=== PATIENT | female | born 1955 | race Caucasian/White ===

== ENCOUNTER → 2017-05-04 | Outpatient (CLI) | payer MEDICAID ==
[~2017-05-04] MED LIST: ADDERALL 20 MG20 M1 PO; CLONAZEPAM 1 MG1 M1 PO; HYDROCODONE-AP1 EAC6 PO; NORVASC5 MG PO; OXCARBAZEPINE300 M1 PO; PERCOCET PO; QUETIAPINE FUM100 MG PO; RESTORIL30 MG PO; SIMVASTATIN40 MG PO; TRAMADOL 50 MG50 MG PO; TRILEPTAL300 MG PO; VALIUM5 MG PO; XANAX 0.25 MG0.25 MG PO; XARELTO10 MG PO
== END ==
LOC: M.MRI 05-01 08:30
DX: S83.241A Other tear of medial meniscus, current injury, right knee, initial encounter (principal); M17.11 Unilateral primary osteoarthritis, right knee; M25.461 Effusion, right knee; Z98.890 Other specified postprocedural states; X58.XXXA Exposure to other specified factors, initial encounter; Y93.89 Activity, other specified; Y92.89 Other specified places as the place of occurrence of the external cause; Y99.8 Other external cause status

== ENCOUNTER 2017-06-06 06:33 | Inpatient (IN) | payer MEDICAID ==
[2017-05-25 09:28] LABS: HEMATOCRIT 34.8 % (37.0-47.0); HEMOGLOBIN 11.9 gm/dL (12.0-15.0); MCH 30.2 pg (26.0-34.0); MCHC 34.1 g/dL (28.0-37.0); MCV 88.4 fL (80.0-100.0); MPV 6.5 fl. (7.2-11.1); RBC 3.94 mil/uL (4.20-5.00); RDW-CV 13.8 % (10.5-14.5); WBC 5.4 thou/uL (4.0-11.0)
[2017-05-25 09:29] LABS: URINE BILIRUBIN NEGATIVE (Negative); URINE BLOOD NEGATIVE (Negative); URINE CLARITY CLEAR; URINE COLOR YELLOW; URINE GLUCOSE-RANDOM NEGATIVE (Negative); URINE KETONES NEGATIVE (Negative); URINE LEUKOCYTES-REFLEX NEGATIVE (Negative); URINE NITRITE-REFLEX NEGATIVE (Negative); URINE PROTEIN NEGATIVE (Negative); URINE SPECIFIC GRAVITY 1.025 (1.005-1.030); URINE UROBILINOGEN 0.2 E.U./dl (0.2-1.0)
[2017-05-25 09:34] LABS: PROTIME 9.5 Seconds (9.20-11.50)
[2017-05-25 09:43] LABS: ALBUMIN 3.4 g/dL (3.4-5.0); CALCIUM 8.8 mg/dL (8.5-10.1); POTASSIUM 3.8 mmol/L (3.5-5.1); TOTAL BILIRUBIN 0.1 mg/dL (<0.1-1.0); TOTAL PROTEIN 6.8 g/dL (6.4-8.2)
--- NOTE | 2017-05-25 09:47 | EKG ---
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
[~2017-06-06] VITALS: Ht 152.4 cm; Wt 73.5 kg
[~2017-06-06 06:33] MED LIST changes: -HYDROCODONE-AP1 EAC6 PO; -PERCOCET PO; -VALIUM5 MG PO; -XARELTO10 MG PO
[2017-06-06 07:26] VITALS: BP 124/74
[2017-06-06 11:37] VITALS: BP 121/71
--- NOTE | 2017-06-06 11:42 | NUR ---
PATIENT ADMITTED FROM PACU TO ROOM 103. ALERT AND ORIENTED. DENIES PAIN. DRESSING TO RIGHT KNEE DRY AND INTACT. POLAR CARE,SCD, AND MADHU IN PLACE. VSS. O2 2L, SAT 96% PER NASAL CANNULA. BED ALARM SET. EDUCATED ON FALL PREVENTION. CALL LIGHT WITHIN REACH. WILL CONTINUE TO MONITOR.
--- NOTE | 2017-06-06 14:52 | NUR ---
PT.CALLED CM YESTERDAY TO REQUEST TO GO TO [facility] AFTER ACUTE STAY. SHE SAID SHE HAD GONE THERE LAST TIME AFTER SURGERY AND WANTS TO RETURN THERE. EXPLAINED I COULD NOT MAKE REFERRAL UNTIL DAY OF SURGERY. PT.IS POST OP NOW. CM CALLED [facility] [phone] AND FAXED FACE SHEET,H&P AND CHART COPY OF OP REPORT TO [phone]. SHE SAID PT.HAD ALREADY CALLED HER. WILL NEED TO FAX PT/OT EVALS IN AM AFTER COMPLETED.
[2017-06-06] MEDS ORDERED: HYDROCODONE-AP1 EAC6 PO (16:03)
[2017-06-06] MEDS ORDERED: VALIUM5 MG PO (16:04)
--- NOTE | 2017-06-06 16:24 | NUR ---
PATIENT REMAINS ALERT AND ORIENTED. ANXIOUS AT TIMES, ESPECIALLY REGARDING PSYCHIATRIC MEDICATIONS. VOIDING PER BEDPAN. PAIN CONTROLLED WITH HYDROCODONE AND OXYIR. DRESSING TO KNEE DRY AND INTACT. MADHU,POLAR CARE, AND SCD'S IN PLACE. TOLERATING MEALS. DAUGHTER AT BEDSIDE. CALL LIGHT WITHIN REACH. WILL CONTINUE TO MONITOR.
[2017-06-06 17:36] VITALS: BP 129/55
[2017-06-06 21:05] VITALS: BP 123/69
[2017-06-06 23:56] VITALS: BP 130/86
[2017-06-07 04:01] VITALS: BP 130/84
[2017-06-07 04:23] LABS: HEMATOCRIT 30.8 % (37.0-47.0); HEMOGLOBIN 10.5 gm/dL (12.0-15.0)
[2017-06-07 04:29] LABS: CALCIUM 8.2 mg/dL (8.5-10.1); MAGNESIUM 1.8 mg/dL (1.8-2.4); POTASSIUM 4.1 mmol/L (3.5-5.1)
--- NOTE | 2017-06-07 04:41 | NUR ---
PATIENT ALERT AND ORIENTED. VITALS STABLE. ON 2L OF OXYGEN, CONTINUOUS PULSE OX IN PLACE. RIGHT KNEE DRESSING C/D/I. ALTERNATING PO AND IV PAIN MEDICATION. SLEPT COMFORTABLY THROUGH THE NIGHT. UP WITH ASSIST X 1 TO BSC, VOIDING ADEQUATELY. FLUIDS INFUSING PER ORDER. ZOFRAN GIVEN X 1, EFFECTIVE. HOURLY ROUNDS. BED ALARM IN USE. NURSING WILL CONTINUE TO MONITOR.
[2017-06-07 07:50] VITALS: BP 112/67
--- NOTE | 2017-06-07 16:00 | NUR ---
FAXED OT/PT EV[phone]. INFORMED PT.OF SUCH AND THAT [facility] SHOULD BE OUT TOMORROW AM TO SEE HER. EXPLAINED CYNTHIA WILL NEED TO GET INSURANCE AUTH FROM [employer]ICA[employer]. SHE SAID SHE UNDERSTOOD. PT.WAS IN HER CPM AND SAID SHE LIKED IT. IT DOES THE WORK FOR YOU. CM WILL CONTACT [facility] IN AM TO MAKE SURE SHE RECEIVED FAX.
--- NOTE | 2017-06-07 17:35 | NUR ---
PATIENT REMAINED ALERT AND ORIENTED X'S 4. VITAL SIGNS AND SPO2 STABLE. SPO2 DID DROP IN HIGH 80'S DUE TO PAIN MEDS, PLACED O2 ON PATIENT, PATIENT REFUSED TO USE O2. PAIN NOT CONTROLLED EVEN THOUGH PATIENT RECIEVED PAIN MEDS Q.2 THROUGHOUT SHIFT. PATIENT REQUESTED MORPHINE BUT WITH O2 STATS DROPPING NURSE DID NOT FEEL IT WAS SAFE TO GIVE, PATIENT ALSO TAKING ALPRAZOLAM AND DIAZEPAM FOR ANXIETY. PATIENT TOLD STUDENTS THAT THE NURSE AND AID WERE "EXPLETIVES" AND WERE NOT GIVING HER MORPHINE LIKE SHE REQUESTED. NURSE TRIED TO EXPLAIN THE DANGERS OF TAKING TOO MANY NARCOTICS BUT PATIENT CALLED DR. ARGUELLO TO DEMAND WE GIVE MORPHINE TO HER. PATIENT ALSO TURNED OFF CHAIR ALARM AND GOT UP BY HERSELF TO COMMODE. NURSE AND AID BOTH EXPLAINED TO PATIENT SHE SIGNED FALL CONTRACT AND HOW DANGEROUS IT IS TO GET UP WITH OUT HELP. PATIENT MADE JOKES OF THE SITUATION AND IS NOT PLANNING ON BEING COMPLIANT OF FALL CONTRACT IN FUTURE, PATIENT CANNOT BE LEFT ALONE WHEN USING COMMODE. COMPLETED PT/OT. CPM 0-60 DEGREES. TEDS, SCD'S, YELLOW SOCKS, POLAR CARE IN PLACE. COMPLETED HOURLY ROUNDING. CALL LIGHT WITHIN REACH. WILL CONTINUE TO MONITOR.
[2017-06-07 20:00] VITALS: BP 117/94
[2017-06-08 00:14] VITALS: BP 118/76
[2017-06-08 02:06] LABS: GLYCOHEMOGLOBIN (HGB A1C) 4.7 % (4.8-5.6)
[2017-06-08 04:16] LABS: HEMATOCRIT 30.6 % (37.0-47.0); HEMOGLOBIN 10.2 gm/dL (12.0-15.0)
--- NOTE | 2017-06-08 05:04 | NUR ---
PATIENT REMAINED ALERT AND ORIENTED X4 THROUGOUT SHIFT. VITAL SIGNS STABLE ON ROOM AIR. PAIN WAS MANAGED WITH PO MEDICATION. DECLINED PAIN MEDICATION EARLY THIS AM STATING "I AM NOT HAVING PAIN AT THIS TIME". POLAR PACK IN USE. RIGHT KNEE DRESSING C/D/I. RESTLESS UNTIL 0100 THEN SLEPT COMFORTABLY FOR THE REMAINDER OF THE NIGHT. TRANSFERS WITH ASSIST X1 TO THE BSC. VOIDING ADEQUATELY. IV PATENT IN THE LEFT AC SALINE LOCKED. TOLERATING REGULAR DIET. DENIED NAUSEA. HOURLY ROUNDING COMPLETE. FALL PRECAUTIONS REMAIN IN PLACE. BED IN LOW POSITION WITH ALARM ON. CALL LIGHT WITHIN REACH. NURSING WILL CONTINUE TO MONITOR.
--- NOTE | 2017-06-08 07:38 | NUR ---
PATIENT ALERT AND ORIENTED AT 0000 WHEN NURSING WENT TO GIVE MEDICATION. RESTING COMFORTABLY THROUGHOUT THE NIGHT. HOURLY ROUNDING COMPLETE. CHECKED TO SEE IF PATIENT NEEDED PAIN MEDICATION FREQUENTLY, PATIENT DECLINED. NURSING IN ROOM AT 0600 PATIENT HAD CHANGE OF MENTAL STATUS ONLY ANSWERING YES OR NO QUESTIONS AND NOT ABLE TO STAY AWAKE. VITAL SIGNS STABLE. BG 97. OXYGEN WAS 71% ON ROOM AIR. PLACED ON 3 LITERS OF OXYGEN AND SAT CAME UP TO 96%. PATIENT HAS BEEN NONCOMPLIENT WITH OXYGEN PREVIOUS DAYS. DOCTOR WAS PAGED. ABG AND CHEST XRAY WERE ORDERED. WHEN ASKED IF SHE IS DROWSY AT HOME SHE SAYS "YES".
[2017-06-08 07:49] LABS: BE -1.2 mmol/L (-2 to +3); HCO3 23.4 mmol/L (22.0-26.0); PCO2 38.4 mmHg (35.0-45.0); pH 7.402 (7.340-7.450)
[2017-06-08 07:51] LABS: PO2 59.1 mmHg (75.0-100.0)
[2017-06-08 08:44] VITALS: BP 113/61
--- NOTE | 2017-06-08 10:51 | S ---
[place] [address] SURGICAL PATH RPT PROCEDURE Name: SNEHAL LICONA Room: [address] IN ..#: [id number] Admission: 06/06/17 Date of : 53 Discharge: Report #: [id number] Path Case #: [id number] PATHOLOGY REPORT COLLECTION DATE: 06/06/2017 RECEIVED DATE: 06/06/2017 SUBMITTING PHYS: Dr. Anmol Madden II OTHER PHYS: Dr. Nick Bynum SPECIMEN(S) RECEIVED: A.Bone right knee * * * * * * * * * * * * FINAL DIAGNOSIS: Bone right knee, total knee replacement: - Benign meniscus and benign bone and cartilage with severe degenerative changes. (KENIA:mml; 06/08/2017) PATHOLOGIST: Braulio Resendiz M.D. REPORT ELECTRONICALLY SIGNED BY: Braulio Resendiz M.D. DATE/TIME: 06/08/2017 10:50 * * * * * * * * * * * * GROSS PATHOLOGY: Received in formalin labeled "nomi Cedeno right knee," are multiple segments of bone, including tibial plateau, measuring 7.9 x 7.5 x 2.8 cm in aggregate dimensions with no grossly appreciable soft tissue; meniscus is present. The specimen shows focal eburnation of the articular surfaces. Spot Man sections of bone and soft tissue are submitted in cassette A1, following decalcification. (CAA; 06/07/2017) CLINICAL HISTORY: Right knee degenerative joint disease INITIAL CPT CODE(S): A; 02016, 76832 Professional services performed by [facility] at [facility], [address] [place], [place] [address], [place] [address]. Technical services performed by [facility] at [address] [place] [address], [address] [address]. [place] [address] SURGICAL PATH RPT PROCEDURE Name: SNEHAL LICONA Room: [address] IN [facility].#: [id number] Admission: 06/06/17 Date of : 53 Discharge: Report #: [id number] Path Case #: [id number] [facility] [address] [address] PHONE: [phone] DIRECTOR: Matheus Guido M.D. * * * END OF REPORT * * *
--- NOTE | 2017-06-08 14:23 | NUR ---
FAXED [facility] PROGRESS NOTES FROM STAY TO [phone] THIS AM. SHE WILL OBTAIN INSURANCE [facility] FROM [facility] CALLED AT 1315. SHE SAID THEY CAN ACCEPT PT. THEY HAVE RECEIVED INS.AUTH. VAN TO BE ARRANGED BY [facility] FOR 1600. FAXED DISCHARGE ORDERS TO HER. CHART COPIED TO GO WITH PT. NURSING TO CALL REPORT TO [phone]. PT.INFORMED OF DISCHARGE TIME.
[2017-06-08] MEDS ORDERED: PERCOCET PO (15:54)
[2017-06-08] MEDS ORDERED: XARELTO10 MG PO (15:55)
[2017-06-08 15:56] VITALS: BP 113/61
[2017-06-08 16:06] VITALS: BP 113/61
--- NOTE | 2017-06-08 19:07 | NUR ---
PATIENT LEFT UNIT AT 1600. ALERT AND ORIENTED X4. WITH ASSIST X1 WITH WALKER AND GAIT BELT. PAIN BEING MANAGED WITH PO PAIN MEDICATION. DENIES NAUSEA. THROUGHOUT THE BEGINNING OF THE SHIFT PATIENT WAS VERY LETHARGIC AND STARTED WAKING UP AROUND 1300. IV DC'D. ATTENDED THERAPY THIS EVENING. ALL PERSONAL ITEMS LEFT WITH PATIENT. VSS ON 3L O2. HOURLY ROUNDS HAVE BEEN MAINTAINED THROUGHOUT SHIFT. LEFT WITH TRANSPORTER VIA WHEELCHAIR VAN.
[2017-06-08 19:11] VITALS: BP 113/61
--- NOTE | 2017-06-20 08:30 | OP ---
[address] [address] OPERATIVE REPORT Name: GOLD LICONACRUZ Yan Room: [address] IN .R.#: [id number] Admission: 06/06/17 Attend Phys: Robert Giron Discharge: 06/08/17 Date of : 53 Report #: [id number] THIS REPORT FOR: //name// CC: Pavithra Chavarria DATE OF SERVICE: 06/06/2017 PREOPERATIVE DIAGNOSIS: Right knee osteoarthritis. POSTOPERATIVE DIAGNOSIS: Right knee osteoarthritis. PROCEDURE: Right total knee arthroplasty. SURGEON: Anmol Madden II, DO. STORE GROCERY MERCHANDISER: RAPHAEL Sanchez. ANESTHESIA: General endotracheal. ESTIMATED BLOOD LOSS: 50 mL. ANTIBIOTICS: Ancef preoperatively. DRAINS: Medium Hemovac. COMPLICATIONS: None. CONDITION: The patient is stable to recovery room. IMPLANTS: Listed in the operative record and progress note. BRIEF HISTORY: The patient was seen in preoperative area. Preoperative H and P was performed, site was marked. Questions were answered. Risks and benefits were discussed with the patient in detail about the surgery and the patient wished to proceed and assumed all risks. PROCEDURE: The patient was taken to the operative suite and placed supine on the operating table and given appropriate anesthesia. A well-padded tourniquet was applied to the upper thigh, which was inflated to 300 mmHg after gravity exsanguination. The operative knee was then sterilely prepped and draped. Surgery began by midline incision and this was then carried down through the subcutaneous tissues. A medial parapatellar arthrotomy was performed and carried down to bone. The patella was then everted and excess soft tissue removed from around the femur. Femoral cutting block was then applied, checked [facility] [address] [place] [address] OPERATIVE REPORT Name: SNEHAL LICONA Room: [address]#: [id number] Admission: 06/06/17 Attend Phys: Robert Giron Discharge: 06/08/17 Date of : 53 Report #: [id number] with drop niko for rotation alignment and pinned in appropriate position and appropriate cuts were made. A 4-in-1 cutting block was then applied, checked for rotation alignment, pinning in appropriate position and appropriate cuts were made. The tibia was then exposed. The excess meniscus was removed. Retractors were then placed along collateral ligaments. The tibial cutting block was then applied, pinned in appropriate position. Checked with a drop niko for rotational alignment and slope and appropriate cut was made. The tibial bone was removed. Tibial base plate was then applied. Checked for rotation alignment with a drop niko and pinned into appropriate position. The femur was then applied and box cut was reamed. This was then trialed with the appropriate spacer, which showed to have excellent fit and fill and excellent stability of the knee throughout all range of motion. The patella was then reamed in appropriate fashion, sized for appropriate size. Three peg holes were drilled. It was then trialed and shown to have excellent flexion and extension, excellent tracking of the patella within the groove. These trials were removed. The tibia was punched in appropriate fashion. Bone was then cleansed with Pulsavac irrigation and cement was mixed and applied to the final implants. These were then malleted into position and held with knee extension and compressed to allow the cement to cure. After it cured, excess removed using a [place] and osteotome. The wound was then copiously irrigated, and the final spacer was then malleted in position. Tourniquet was deflated. Hemostasis was maintained with electrocautery. The pain cocktail was injected. The PRP gel was sprayed throughout the internal aspect of the knee. Medium Hemovac drain was then applied. The capsule was closed with 2 FiberWire and 1 Vicryl in [id number] fashion. Skin was closed with 2-0 Vicryl and running 3-0 Monocryl. Dermabond and sterile dressing were then applied. Pio wrap and PolarCare applied. The patient transported to recovery room in stable condition. Counts were correct throughout the procedure. <ELECTRONICALLY SIGNED> By: Anmol Madden II, DO 06/20/17 0830 2131 [id number] Madden II, DO /nt
== END 2017-06-08 16:10 | DRG 470 ==
LOC: M.PRE 06:33 → M.ORTHSURG 06:37 → M.TBA 06:37 → M.PRE 08:42 → M.ORTHSURG 10:58 → M.PRE 12:47 → M.ORTHSURG 06-08 16:10
PROVIDERS: Internal Medicine; Orthopaedic Surgery; ADMIT Internal Medicine
PROC: 0SRC0J9 Replacement of Right Knee Joint with Synthetic Substitute, Cemented, Open Approach (ICD-10-PCS; principal; 2017-06-06)
DX: M17.11 Unilateral primary osteoarthritis, right knee (principal); J98.11 Atelectasis; Z96.641 Presence of right artificial hip joint; F41.9 Anxiety disorder, unspecified; F31.9 Bipolar disorder, unspecified; T40.605A Adverse effect of unspecified narcotics, initial encounter; Z90.49 Acquired absence of other specified parts of digestive tract; Z88.6 Allergy status to analgesic agent; Z79.899 Other long term (current) drug therapy